=== PATIENT | male | born 1960 | race Caucasian/White ===

== ENCOUNTER 2018-03-25 09:41 | Day surgery (SDC) | payer BC ==
[2018-03-16 12:48] VITALS: BMI 26.2
[2018-03-25 10:08] VITALS: TEMP 97.9
[2018-03-25] MEDS ORDERED: PROPOFOL 20 ML ONE (10:40)
[2018-03-25] MEDS ORDERED: LIDOCAINE HCL/PF 2% SDV 5ML VIAL ONE (10:40)
[2018-03-25 12:01] VITALS: BP 110/66; PULSE 70
== END 2018-03-25 12:05 | disposition home or self-care (01) ==
LOC: FASU-ENDO 09:41
PROVIDERS: ATTEND Internal Medicine Gastroenterology
PROC: 0DJD8ZZ Inspection of Lower Intestinal Tract, Via Natural or Artificial Opening Endoscopic (ICD-10-PCS; principal; 2018-03-25 10:30)
DX: K92.1 Melena (principal); K64.1 Second degree hemorrhoids

== ENCOUNTER 2020-08-21 17:58 | Emergency (ER) | payer BC ==
[2020-08-21 18:02] VITALS: BP 123/87; PULSE 95; TEMP 97.6; BMI 26.6
[2020-08-21] MEDS ORDERED: DIPHTH,PERTUSS(ACELL),TET 0.5 ML DISP.SYRIN IM ONE (18:39)
== END 2020-08-21 20:35 | disposition home or self-care (01) ==
LOC: JER 17:58 → JERFT 17:58
PROC: 0HQGXZZ Repair Left Hand Skin, External Approach (ICD-10-PCS; principal; 2020-08-21)
PROC: 3E0234Z Introduction of Serum, Toxoid and Vaccine into Muscle, Percutaneous Approach (ICD-10-PCS; 2020-08-21)
DX: S61.215A Laceration without foreign body of left ring finger without damage to nail, initial encounter (principal)
CPT/HCPCS: 73130-TC-LT-FY; 99284-25

== ENCOUNTER 2022-05-27 15:29 | Emergency (ER) | payer BC, OTHER ==
[2022-05-27] MEDS ORDERED: DIPHTH,PERTUSS(ACELL),TET 0.5 ML DISP.SYRIN IM ONE (15:45)
[2022-05-27 15:48] VITALS: BP 130/89; PULSE 79; RESP 20; TEMP 98.3; BMI 27.3
[2022-05-27] MEDS ORDERED: FLUORESCEIN NA 1 EA STRIP OS ONE (16:41)
[2022-05-27] MEDS ORDERED: FLUORESCEIN NA 1 EA STRIP ONE (16:42)
[2022-05-27] MEDS ORDERED: TETRACAINE 0.5% OPHTH SOLN 2 ML BOTTLE ONE (16:42)
== END 2022-05-27 21:12 | disposition home or self-care (01) ==
LOC: FER 15:29
DX: S05.02XA Injury of conjunctiva and corneal abrasion without foreign body, left eye, initial encounter (principal); S01.112A Laceration without foreign body of left eyelid and periocular area, initial encounter; W22.8XXA Striking against or struck by other objects, initial encounter
CPT/HCPCS: 70450-TC; 70486-TC; 99284-25

== ENCOUNTER 2023-08-07 16:10 | Emergency (ER) | payer OTHER ==
[2023-08-07 17:22] LABS: HEMATOCRIT 41.9 % (35.4-49); HEMOGLOBIN 13.8 G/dL (11.7-16.9); MCH 26.7 pg (25.7-33.7); MCHC 32.9 g/dl (32.0-35.9); MEAN CELL VOLUME 81.1 fl (80-96); MEAN PLT VOLUME 8.2 fl (7.5-11.1); PLATELET COUNT 243.3 10^3/uL (134-434); RBC 5.17 10^6/uL (4.00-5.60); RDW 16.2 % (11.9-15.9)
[2023-08-07 17:31] LABS: PROTHROMBIN TIME (PATIENT) 11.6 SEC (9.7-13.0)
[2023-08-07 17:33] LABS: ACTIVATED PTT 32.3 SECONDS (25.2-36.5)
[2023-08-07 17:35] LABS: PLATELET ESTIMATE ADEQUATE
[2023-08-07 17:41] LABS: ALBUMIN 4.7 g/dl (3.4-5.0); BILIRUBIN,TOTAL 0.4 mg/dl (0.2-1); CALCIUM 9.9 mg/dl (8.5-10.1); CREATININE 0.8 mg/dl (0.6-1.3); POTASSIUM 4.9 mmol/L (3.5-5.1); TOT PROT 7.4 g/dl (6.4-8.2)
[2023-08-07 18:58] VITALS: RESP 18; BMI 27.3
[2023-08-07 21:03] VITALS: BP 120/77; PULSE 81; TEMP 98.3
== END 2023-08-07 23:36 | disposition home or self-care (01) ==
LOC: FER 16:10
DX: R10.30 Lower abdominal pain, unspecified (principal); R10.11 Right upper quadrant pain
CPT/HCPCS: 36415; 74177-TC; 80053; 81003; 81015; 83690; 85027; 85610; 85730; 86850; 86900; 86901; 87086; 99285-25; Q9967

== ENCOUNTER 2023-12-11 05:10 | Day surgery (SDC) | payer OTHER ==
[2023-12-10 07:23] VITALS: BMI 26.5
[2023-12-11 09:47] VITALS: TEMP 98.2
[2023-12-11 11:42] VITALS: RESP 18
[2023-12-11 11:44] VITALS: BP 107/64; PULSE 65
== END 2023-12-11 10:25 | disposition home or self-care (01) ==
LOC: JASU-ENDO 05:10
PROVIDERS: ATTEND Internal Medicine Gastroenterology
PROC: 0DJD8ZZ Inspection of Lower Intestinal Tract, Via Natural or Artificial Opening Endoscopic (ICD-10-PCS; principal; 2023-12-11 08:45)
DX: K57.30 Diverticulosis of large intestine without perforation or abscess without bleeding (principal); K64.8 Other hemorrhoids

== ENCOUNTER 2023-12-18 04:29 | Day surgery (SDC) | payer OTHER ==
[2023-12-16 15:22] VITALS: BMI 26.6
[2023-12-18 09:51] VITALS: TEMP 97.4
[2023-12-18 10:16] VITALS: RESP 18
[2023-12-18 11:02] VITALS: BP 115/71; PULSE 72
== END 2023-12-18 10:45 | disposition home or self-care (01) ==
LOC: JASU-ENDO 04:29
PROVIDERS: ATTEND Internal Medicine Gastroenterology
PROC: 0DB78ZX Excision of Stomach, Pylorus, Via Natural or Artificial Opening Endoscopic, Diagnostic (ICD-10-PCS; 2023-12-18)
PROC: 0DB68ZX Excision of Stomach, Via Natural or Artificial Opening Endoscopic, Diagnostic (ICD-10-PCS; 2023-12-18)
PROC: 0DB48ZX Excision of Esophagogastric Junction, Via Natural or Artificial Opening Endoscopic, Diagnostic (ICD-10-PCS; 2023-12-18)
PROC: 0DB98ZX Excision of Duodenum, Via Natural or Artificial Opening Endoscopic, Diagnostic (ICD-10-PCS; principal; 2023-12-18 09:00)
DX: K21.00 Gastro-esophageal reflux disease with esophagitis, without bleeding (principal); K44.9 Diaphragmatic hernia without obstruction or gangrene; K29.50 Unspecified chronic gastritis without bleeding
CPT/HCPCS: 88305-TC; 88342-TC